=== PATIENT | female | born 1995 | race African-American/Black ===

== ENCOUNTER 2021-07-30 17:44 | Emergency (ER) | payer MEDICAID ==
[~2021-07-30] VITALS: Ht 160 cm; Wt 64.0 kg
[~2021-07-30 17:44] MED LIST: FERR-43 PO; PREN-88 PO
[2021-07-30 17:51] VITALS: BP 135/90
== END 2021-07-30 19:24 | disposition home or self-care (01) ==
LOC: ER 17:44
DX: F91.9 Conduct disorder, unspecified (principal)
CPT/HCPCS: 99283